=== PATIENT | female | born 1995 | race African-American/Black ===

== ENCOUNTER 2017-03-03 17:43 | Emergency (ER) | payer OTHER ==
[~2017-03-03] VITALS: Ht 165.1 cm; Wt 63.6 kg
[2017-03-03 17:51] VITALS: BP 139/75; PULSE 111; O2SAT 97
--- NOTE | 2017-03-03 18:01 | ED.REPORT ---
HPI-Chest Pain Under 40 Date of Service Mar 03, 2017 ED Provider: Reynold Giordano MD Pt is a 21 y/o female who presents to the ED via EMS c/o chest pain while sitting onset 45 minutes ago. Additional symptoms include anxiety, lower back pain, numbness/tingling on her L arm and leg, intermittent L-sided tenderness in her ribs, SOB, nausea, and diaphoresis since resolved. She denies neck pain or vomiting. Pt states she has had similar symptoms previously on 01/08/17 but denies having her symptoms last this long. She has been to the doctor and a physical therapist for these symptoms, in which they thought it might be anxiety or a pinched nerve. She states her mother had unspecified chest pain for years. She was taking anti-anxiety medications before, but her doctor tapered her off as they thought it might have been causing her chest pain symptoms. Nursing Notes Stated Complaint: NON CARDIAC CP Chief Complaint: Chest Pain-Non Cardiac Nature Nursing Notes Reviewed: Yes Allergies: Coded Allergies: No Known Allergies (Unverified , 03/03/17) General Time Seen by MD: 18:01 Chief Complaint Chest pain Hx Obtained From: Patient Arrived By: Ambulance Sudden in Onset?: Yes Onset Occurred: 31 - 45 minutes ago Symptom Duration: Constant Quality: Painful Severity: Current: Mild Severity: Maximum: Moderate Recent Healthcare: No recent hospitalization, Recent doctor visit Similar Sx Previous: Yes Risk Factors )( CAD Risk Stratification SmokingNo Amphetamine, No Cocaine, No Diabetes mellitus, No Family history, No Hyperlipidemia, No Hypertension, No Known CAD Risk factors reviewed )( PE Risk Stratification Risk factors reviewed, No risk factors PERC Rule Heart rate 100 or over PERC Result: PERC rule not satisfied Well's Criteria for PE Well's PE Score: 0-2 pts (low risk 3.6%) Past Medical History Past Medical History Notes: PCP: Dr. Ayan Bruno in [place] Past Medical History Ovarian cyst - May 2017 Past Surgical History [place] teeth removal Family History Mother had unspecified chest pain Mother from bone marrow cancer at 57 Smoking History Former Smoker Social History Lives in [place] Alcohol Use: "Social" Other Social History: Good social support Ambulatory Status Independent Review of Systems Intermittent L-sided rib tenderness Respiratory: Reports: Shortness of breath Cardiovascular: Reports: Chest pain GI: Reports: Nausea, Denies: Vomiting Musculoskeletal: Reports: Back pain (lower back), Denies: Neck pain Skin: Reports Diaphoresis (resolved) Neurologic: Reports: Numbness (on L side) Psychiatric: Reports: Anxiety Complete sys rev & neg: except as marked. Physical Exam Initial Vital Signs Vital Signs (First) Date Time Temp Pulse Resp B/P Pulse Ox O2 Delivery O2 Flow Rate FiO2 03/03/17 17:51 37.1 111 139/75 97 Room Air 03/03/17 21:30 18 Initial VS: Reviewed Head / Eyes: Atraumatic, Normocephalic Neck: Supple, Full range of motion Lymphatic: No lymphadenopathy Extremities: Vascular intact, Neuro intact, No swelling, No tenderness Skin: Warm, Dry, No cyanosis Neurologic: Alert, Oriented, Nonfocal Psychiatric: Mood/affect normal, Behavior normal, Normal thought content General/Constitutional: Awake, Alert Respiratory / Chest: Atraumatic, Breath sounds NL, Breath sounds = bilat, No respiratory distress Point tenderness to palpation on L ribs Cardiovascular: Heart rate NL, Regular rhythm, Heart sounds NL Interpretation & Diagnostics Lab Results Interpretation Result Diagram: 03/03/17191303/03/171913 Test 03/03/17 19:14 03/03/17 19:15 White Blood Count 8.7th/mm3 (3.8-10.1) Red Blood Count 3.77mil/mm3 (3.90-5.20) Hemoglobin 11.6g/dL (12.0-15.6) Hematocrit 33.5% (35.0-46.0) Mean Corpuscular Volume 89fL (81-100) Mean Corpuscular Hemoglobin 30.8pg (27.0-35.0) Mean Corpuscular Hemoglobin Concent 34.6% (32.0-37.0) Red Cell Distribution Width 11.2% (12.3-15.4) Platelet Count 269bil/L (150-400) Neutrophils (%) (Auto) 81% (40-74) Lymphocytes (%) (Auto) 12% (14-46) Monocytes (%) (Auto) 7% (4-12) Eosinophils (%) (Auto) 0% (0-5) Basophils (%) (Auto) 0% (0-3) D-Dimer < 0.5mg/L FEU (<0.50) Sodium Level 138mEq/L (134-144) Potassium Level 4.0mEq/L (3.5-5.2) Chloride Level 102mEq/L (97-108) Carbon Dioxide Level 22mmol/L (18-29) Blood Urea Nitrogen 17mg/dL (6-20) Creatinine 0.90mg/dL (0.57-1.00) Estimat Glomerular Filtration Rate 100mL/min (>59) Glucose Level 107mg/dL (60-99) Calcium Level 9.6mg/dL (8.5-10.1) Total Bilirubin 0.4mg/dL (0.0-1.2) Aspartate Amino Transf (AST/SGOT) 17U/L (0-50) Alanine Aminotransferase (ALT/SGPT) 12U/L (0-32) Alkaline Phosphatase 54U/L (25-150) Troponin T < 0.010ug/L (0.0-0.011) Total Protein 7.7g/dL (6.4-8.4) Albumin 4.0g/dL (3.4-5.0) HCG Beta Subunit < 0.500mIU/mL Hold Hernandez Top Tube Received (Received) ECG Interpretation ECG Interpretation: Sinus rhythm, rate 94 Time: 18:26 Interpreted by: ED physician X-Ray Chest Interpretation Chest Xray Interpretation: IMPRESSION: No radiographic evidence of acute cardiopulmonary pathology. Dictated by: Kevyn Matamoros M.D. on 03/03/2017 at 18:47 Approved by: Kevyn Matamoros M.D. on 03/03/2017 at 18:47 View: AP & lat Interpretation / Wet Read by: Interpret - Radiologist Re-Eval/Medical Decision Source of Hx: Old records Re-Evaluation/Progress #1: Time of Eval: 18:35 Re-Evaluation/Progress Note: Pt rechecked. Performed physical exam. Vitals reviewed. Re-Evaluation/Progress #2: Time of Eval: 20:01 Re-Evaluation/Progress Note: Pt recehcked. Pt reports feeling mild improvement. Re-Evaluation/Progress #3: Time of Eval: 20:47 Patient Status: Condition improved Re-Evaluation/Progress Note: Patient rechecked. Discussed plan for discharge. Patient understands and agrees with plan. F/U instructions and RTER warnings given. All questions addressed at this time. Counseled Regarding: Diagnosis, Lab results, Need for follow-up, When/why to return to ED Discharge & Departure Primary Impression: Non-cardiac chest pain Disposition: Home Discharge Condition All VS Reviewed: Yes Condition: Stable Patient Instructions: Chest Pain (ED) Additional Instructions: Thank you for entrusting us with your care today. Your emergency department evaluation today including examination, lab work, EKG , and chest X-ray are reassuring. We checked for infection, heart attack, pulmonary embolism, and broken ribs but did not find a cause for your symptoms. Please call your primary care physician tomorrow in order to schedule a follow- up appointment for a recheck. Please return to the emergency department for any new or worsening conditions including any difficulty breathing, fevers, chills, nausea, vomiting, chest pain , lightheadedness, or weakness. Scribe Attestation Portions of this note were transcribed by Anne Parker. I, Dr. Giordano, personally performed the history, physical exam and medical decision-making; I reviewed and confirmed the accuracy of the information in the transcribed note. Reynold Giordano MD Mar 03, 2017 18:01 Anne Parker Mar 03, 2017 18:16
[2017-03-03] MEDS ORDERED: LORazepam 1 mg Tablet PO ONE (18:25)
--- NOTE | 2017-03-03 18:49 | DRSVH ---
PROCEDURE: X-RAY CHEST, TWO VIEWS ([id number]) INDICATIONS: chest pain TECHNIQUE: 2 views of the chest were acquired. COMPARISON: None. FINDINGS: Surgical changes and devices: None. Lungs and pleura: No pleural effusions or pneumothorax. Lungs are clear. Mediastinum: Mediastinal contours are normal. Heart size is normal. Bones and chest wall: No suspicious bony abnormalities. Soft tissues appear unremarkable. IMPRESSION: No radiographic evidence of acute cardiopulmonary pathology. Dictated by: Kevyn Matamoros M.D. on 03/03/2017 at 18:47 Approved by: Kevyn Matamoros M.D. on 03/03/2017 at 18:47
[2017-03-03 19:31] LABS: BASOPHILS % (AUTO) 0 % (0-3); EOSINOPHILS % (AUTO) 0 % (0-5); MONOCYTES % (AUTO) 7 % (4-12); Mean Corpuscular Hemoglobin 30.8 pg (27.0-35.0); Mean Corpuscular Volume 89 fL (81-100); NEUTROPHILS % (AUTO) 81 % (40-74); Platelet Count 269 bil/L (150-400)
[2017-03-03 19:52] LABS: TROPONIN T < 0.010 ug/L (0.0-0.011)
[2017-03-03 21:30] VITALS: BP 119/56; PULSE 70; RESP 18; O2SAT 98
== END 2017-03-03 21:32 | disposition home or self-care (01) ==
LOC: SED 17:43 → EDBD 17:43 → SED 21:32
DX: R07.89 Other chest pain (principal); Z87.891 Personal history of nicotine dependence